=== PATIENT | male | born 1995 | race African-American/Black ===

== ENCOUNTER 2018-10-28 16:57 | Emergency (ER) | payer MEDICARE ==
[2018-10-28] MEDS ORDERED: Ketorolac Tromethamine 60 MG/2 ML VIAL ONE (18:13)
== END 2018-10-28 18:31 | disposition home or self-care (01) ==
LOC: ERS 16:57
DX: S76.912A Strain of unspecified muscles, fascia and tendons at thigh level, left thigh, initial encounter (principal); S76.911A Strain of unspecified muscles, fascia and tendons at thigh level, right thigh, initial encounter; X50.0XXA Overexertion from strenuous movement or load, initial encounter
CPT/HCPCS: 96372; J1885